=== PATIENT | female | born 1990 | race Caucasian/White ===

== ENCOUNTER 2017-01-11 16:10 | Emergency (ER) | payer OTHER ==
[2017-01-11 16:50] LABS: SPECIFIC GRAVITY 1.015 (1.001-1.030); URINE BILIRUBIN NEGATIVE (NEGATIVE); URINE BLOOD 3+ (NEGATIVE); URINE GLUCOSE (UA) NEGATIVE (NEGATIVE); URINE LEUKOCYTE ESTERASE TRACE (NEGATIVE); URINE PROTEIN 1+ (NEGATIVE)
[2017-01-11 16:59] LABS: HCG,QUALITATIVE URINE NEGATIVE; URINE APPEARANCE HAZY; URINE COLOR DARK YELLOW; URINE NITRITE POSITIVE (NEGATIVE); URINE UROBILINOGEN 4 mg/dL (0-1 mg/dl)
[2017-01-11 17:09] LABS: URINE BACTERIA 4+
[2017-01-11] MEDS ORDERED: ONDANSETRON 4 MG/2ML 2 ML VIAL ONE (18:14)
[2017-01-11] MEDS ORDERED: HYDROMORPHONE HCL 1 MG/ML SYRINGE ONE (18:14)
[2017-01-11 18:28] LABS: ABSOLUTE NEUTROPHIL COUNT 12.7 K/mm3 (1.8-7.7); BASO % 0.2 % (0.2-1.0); EOS % 0.1 % (0.9-2.9); HEMATOCRIT 37.9 % (37.0-47.0); HEMOGLOBIN 12.6 gm/l (12.0-16.0); IMM NEUT # 0.1 K/mm3 (0-0.2); IMM NEUT% 0.4 % (0-1); LYMPH # 1.7 (1.0-4.8); LYMPH % 10.4 % (15-45); MEAN CORPUSCULAR HEMOGLOBIN 29.9 pg (27.0-31.0); MEAN CORPUSCULAR HGB CONC 33.2 g/dl (33.0-37.0); MEAN PLATELET VOLUME 11.3 fl (7.4-10.4); MONO # 1.7 (0.0-0.8); MONO % 10.6 % (4-12); NEUT % 78.3 % (43-75); PLATELET COUNT 241 K/mm3 (130-400); RED CELL DISTRIBUTION WIDTH 13.1 % (11.5-14.5)
[2017-01-11 18:41] LABS: ALB/GLOB RATIO 1.2 (>1.0); ALBUMIN 3.9 gm/dL (3.5-5.7); CALCIUM 9.2 mg/dL (8.6-10.3)
--- NOTE | 2017-01-11 19:25 | CT ---
Name: FLORENTINO MATUTE Exam: Noncontrast renal stone CT Comparison: None Clinical History: Flank pain Procedure: Helical CT using multidetector technique was applied to the abdomen and pelvis without contrast. Sagittal, axial and coronal reconstructions were obtained. An automated dose reduction technique was used to minimize patient radiation dose. Findings: CT abdomen (noncontrast): Lung bases are clear. Heart is nonenlarged. There is no pericardial effusion. Noncontrast images of the liver, gallbladder, pancreas, spleen, adrenal glands, left kidney, aorta, IVC and portal vein are normal. There is right perinephric stranding. There is no hydronephrosis ureterectasis or calculus. Stomach, small bowel and colon are within normal limits. There is no free air or adenopathy. Old bilateral pars defects are identified at L5 allowing a slight anterolisthesis of L5 on S1. There is a small fat filled umbilical hernia. CT pelvis (noncontrast): Bladder is unremarkable. Ureters are normal caliber. Calculus is not identified. Normal size uterus is to the right. A diaphragm is in place. Left ovary is normal. The right ovary is not clearly identified. The appendix is not identified however there is no pericecal stranding. Small bowel and colon are normal. There is no free air, free fluid or suspicious adenopathy. Impression: 1. Right perinephric stranding without hydronephrosis, ureterectasis or calculus. Differential considerations include pyelonephritis and recently passed calculus. 2. Nonvisualization of the appendix. There is no pericecal stranding. 3. Nonvisualization of the right ovary. There is no right adnexal or hemipelvis inflammatory change 4. Old bilateral pars defects at L5 allowing a slight anterolisthesis of L5 on S1 Note: The above report was uploaded to [facility]'s electronic medical records system at 1921 hours.
[2017-01-11] MEDS ORDERED: CEFTRIAXONE 1 GRAM DUPLEX 50 ML IV ONE (20:00)
== END 2017-01-11 20:36 | disposition home or self-care (01) ==
LOC: ED 16:10
DX: N12 Tubulo-interstitial nephritis, not specified as acute or chronic (principal); F17.210 Nicotine dependence, cigarettes, uncomplicated
CPT/HCPCS: 81025; 85025; 87086; 80053; 87186; 81001; 74176; 96375 ×2; 99284 ×2; 96365; J1170; J2405; J0696